=== PATIENT | female | born 1955 | race Caucasian/White ===

== ENCOUNTER 2016-05-11 12:32 | Emergency (ER) | payer MEDICAID ==
[2016-05-11] MEDS ORDERED: HYDROCODONE/APAP 7.5/325MG TABLET PO ONE (13:13)
--- NOTE | 2016-05-11 13:18 | Emergency Department Record ---
History of Present Illness - General Chief Complaint: Knee injury Stated Complaint: RIGHT KNEE INJURY Time Seen by Provider: 05/11/16 13:13 Source: Patient Mode of Arrival: Wheelchair Limitations: No limitations - History of Present Illness Initial Comments: 61 yo female presents to ED with a CC of knee pain following an injury 4 days ago. Patient reports that her knee "gave out" resulting in injury. Patient reports pain with ambulation, but is able to weight bear on examination. Patient denies other injury, reports a history of CAD s/p CA x 2. MD Complaint: Knee injury Onset/Timin -: Days(s) Injury: Knee: Right Type of Injury: Other Place: Home Severity: Moderate Severity scale (1-10): >10 Improves With: Immobilization Worsens With: Weight bearing Context: Other Associated Symptoms: Able to partially bear weight - Related Data Home Medications Medication Instructions Recorded Confirmed Last Taken Carvedilol [Coreg] 25 mg PO BID 12/19/14 05/11/16 05/11/16 Gabapentin [Neurontin] 300 mg PO TID 12/19/14 05/11/16 05/11/16 Lisinopril [Zestril] 20 mg PO DAILY 12/19/14 05/11/16 05/11/16 Simvastatin [Zocor] 20 mg PO DAILY 12/19/14 05/11/16 05/11/16 Venlafaxine HCl [Effexor Xr] 75 mg PO DAILY 12/19/14 05/11/16 05/11/16 Levothyroxine Sodium [Synthroid] 100 mcg PO DAILY 05/11/16 05/11/16 05/11/16 Previous Rx's Medication Instructions Recorded Naproxen [Naprosyn] 500 mg PO Q12H #30 tab. 12/19/14 Hydrocodone/Acetaminophen [[place] 1 tab PO Q6H PRN #10 tab 05/11/16 5mg/325mg] Naproxen [Naprosyn] 500 mg PO Q12H #20 tab 05/11/16 Allergies Allergy/AdvReac Type Severity Reaction Status Date / Time No Known Drug Allergies Allergy Verified 05/11/16 12:55 Travel Screening - Travel/Exposure Within Last 30 Days Have you traveled within the last 30 days?: No Review of Systems Constitutional: Denies: Chills, Fever, Malaise, Night sweats Eyes: Denies: Eye discharge, Eye pain, Photophobia ENT: Denies: Congestion, Ear pain, Epistaxis Respiratory: Denies: Cough, Dyspnea Cardiovascular: Denies: Chest pain, Dyspnea on exertion Endocrine: Denies: Fatigue, Heat or cold intolerance Gastrointestinal: Denies: Abdominal pain, Nausea, Vomiting Genitourinary: Denies: Dysuria, Frequency, Hematuria, Incontinence Musculoskeletal: Reports: Arthralgia. Denies: Back pain, Gout, Joint swelling Skin: Reports: Bruising. Denies: Change in color, Change in hair/nails Neurological: Denies: Confusion, Headache, Seizure Psychiatric: Denies: Anxiety Hematological/Lymphatic: Denies: Anemia, Blood Clots Past Medical History - SOCIAL HISTORY Smoking Status: Current every day smoker Alcohol Use: None Drug Use: None - RESPIRATORY Hx Respiratory Disorders: No - CARDIOVASCULAR Hx Cardio Disorders: Yes Hx Heart Attack: Yes Hx Hypertension: Yes Hx Irregular Heartbeat: Yes ("extra beats") - NEURO Hx Neuro Disorders: No - GI Hx GI Disorders: Yes Hx Reflux: Yes - Hx Genitourinary Disorders: No - ENDOCRINE Hx Endocrine Disorders: Yes - MUSCULOSKELETAL Hx Musculoskeletal Disorders: Yes - PSYCH Hx Psych Problems: Yes Hx Depression: Yes - HEMATOLOGY/ONCOLOGY Hx Hematology/Oncology Disorders: No Family Medical History Any Significant Family History?: No Physical Exam - General General Appearance: Alert, Oriented x3, Cooperative, Mild distress Limitations: No limitations - Head Head exam: Atraumatic, Normocephalic, Normal inspection Head exam detail: negative: Abrasion, Contusion, Servin's sign, General tenderness, Hematoma, Laceration - Eye Eye exam: Normal appearance. negative: Conjunctival injection, Periorbital swelling, Periorbital tenderness, Scleral icterus - ENT Ear exam: negative: Auricular hematoma, Auricular trauma Nasal Exam: negative: Active bleeding, Discharge, Dried blood, Foreign body Mouth exam: negative: Laceration, Muffled voice, Tongue elevation - Neck Neck exam: Normal inspection. negative: Meningismus, Tenderness - Respiratory Respiratory exam: Normal lung sounds bilaterally. negative: Rales, Respiratory distress, Rhonchi, Stridor - Cardiovascular Cardiovascular Exam: Regular rate, Normal rhythm, Normal heart sounds - GI/Abdominal GI/Abdominal exam: Soft. negative: Rebound, Rigid, Tenderness - Rectal Rectal exam: Deferred - exam: Deferred - Extremities Extremities exam: Tenderness, Other (Mild STS and pain with palpation of the knee anteriorly, ligaments are stable on examination but induce pain with testing, no effusion notred, no clinical signs of a septic joint on exmaintion. DPP strong right.). negative: Calf tenderness, Pedal edema - Back Back exam: Denies: CVA tenderness (R), CVA tenderness (L) - Neurological Neurological exam: Alert, Normal gait, Oriented X3 - Psychiatric Psychiatric exam: Normal affect, Normal mood - Skin Skin exam: Normal color. negative: Abrasion Type of lesion: negative: abrasion Course Vital Signs 05/11/16 12:50 Temperature 98.4 F Pulse Rate 89 Respiratory 16 Rate Blood Pressure 158/96 Pulse Ox 98 - Reevaluation(s) Reevaluation #1: 05/11/16 14:49 Right knee/Lower extremity: Degenerative changes, nothing acute. Patient reassessed, currently sleeping, easily arouses to voice. Patient and her SO were updated on radiology results, and the patient appears stable for discharge with analgesia and knee immobilizer. Patient reports that she has crutches at home that she is able to use. Disposition Disposition: Discharge Clinical Impression: Strain of right knee Qualifiers: Encounter type: initial encounter Qualified Code(s): S86.911A - Strain of unspecified muscle(s) and tendon(s) at lower leg level, right leg, initial encounter Disposition: Home, Self-Care Condition: (2) Stable Instructions: Knee Pain (ED) Additional Instructions: Return to ED if your symptoms worsen or if you have any concerns. Knee immobilizer as directed. [place] and Naprosyn as directed. Follow-up with your family doctor in 3-5 days as directed. Prescriptions: Naproxen [Naprosyn] 500 mg PO Q12H #20 tab. Hydrocodone/Acetaminophen [[place] 5mg/325mg] 1 tab PO Q6H PRN #10 tab PRN Reason: Pain - General Forms: Patient Portal Access Time of Disposition: 14:56
== END 2016-05-11 15:18 | disposition home or self-care (01) ==
LOC: ER 12:32
DX: S86.911A Strain of unspecified muscle(s) and tendon(s) at lower leg level, right leg, initial encounter (principal); X50.9XXA Other and unspecified overexertion or strenuous movements or postures, initial encounter; Y93.01 Activity, walking, marching and hiking
CPT/HCPCS: 99283